=== PATIENT | male | born 1995 | race Caucasian/White ===

== ENCOUNTER 2017-02-17 19:36 | Emergency (ER) | payer MEDICAID ==
[~2017-02-17] VITALS: Ht 165.1 cm; Wt 57.0 kg
[2017-02-17 19:48] VITALS: Ht 165.1 cm; Wt 57.0 kg
[2017-02-17] MEDS ORDERED: IBUP-1542 PO (20:05)
[2017-02-17] MEDS ORDERED: AMO500 PO (20:05)
--- NOTE | 2017-02-17 20:12 | ERD ---
ER Documentation Chief Complaint Date/Time DATE: 02/17/17 TIME: 20:[address] for 3 weeks with "Bumps" in throat HPI 21-year-old male presents to emergency department for complaints of sore throat for 3 weeks, burning pain 8/10 scale, is worse upon swallowing, noted some bumps in the third, and is on and off swelling of the tonsils per patient. Patient did not take any medications of symptoms. Patient has been having on and off fever. Patient is any other symptoms. Patient denies any stridor. ROS All systems reviewed and are negative except as per history of present illness. Medications Home Meds Active Scripts Ibuprofen* (Motrin*) 600 Mg Tab, 600 MG PO Q6H Y for PAIN AND OR ELEVATED TEMP, #30 TAB Prov:LEIGH ANN KAY BRIDAL CONSULTANT 02/17/17 Amoxicillin* (Amoxicillin*) 500 Mg Cap, 500 MG PO TID for 10 Days, CAP Prov:LEIGH ANN KAY BRIDAL CONSULTANT 02/17/17 Allergies Allergies: Coded Allergies: No Known Allergy (Unverified , 02/17/17) PMhx/Soc Medical and Surgical Hx: pt denies Medical Hx, pt denies Surgical Hx FmHx Family History: No coronary disease, No diabetes, No other Physical Exam Vitals Vital Signs Date Time Temp Pulse Resp B/P Pulse Ox O2 Delivery O2 Flow Rate FiO2 02/17/17 19:48 98.2 78 18 133/83 99 Physical Exam GENERAL: The patient is well developed and appropriate for usual state of health, in no apparent distress. HEENT: Atraumatic. Ears: Normal tympanic membrane, no erythema or bulging. No ear canal swelling. No ear discharge. Nose: normal nasal turbinates, no erythema or swelling. Normal nasal discharge. Throat: oropharynx erythema with tonsillar swelling and tonsillar exudates noted. No tonsillar swelling or tonsillar exudates. No lymphadenopathy. CHEST: Clear to auscultation bilaterally. There are no rales, wheezes or rhonchi. HEART: Regular rate and rhythm. No murmurs, clicks, rubs or gallops. No S3 or S4. ABDOMEN: Soft, nontender and nondistended. Good bowel sounds. No rebound or guarding. No gross peritonitis. No gross organomegaly or masses. No Whaley sign or McBurney point tenderness. BACK: No midline or flank tenderness. EXTREMITIES: Equal pulses bilaterally. There is no peripheral clubbing, cyanosis or edema. No focal swelling or erythema. Full range of motion. Grossly neurovascularly intact. NEURO: Alert and oriented. Cranial nerves 2-12 intact. Motor strength in all 4 extremities with 5/5 strength. Sensation grossly intact. Normal speech and gait. SKIN: There is no apparent rash or petechia. The skin is warm and dry. HEMATOLOGIC AND LYMPHATIC: There is no evidence of excessive bruising or lymphedema. No gross cervical, axillary, or inguinal lymphadenopathy. Procedures/MDM Medical decision making: Patient symptoms is likely consistent with acute bacterial pharyngitis, most likely strep throat. Low suspicion for peritonsillar abscess, mononucleosis, no symptoms of epiglottitis, laryngitis. No oral airway obstruction noted. No symptoms of sepsis at this time. Patient appears well and is hemodynamically stable. Patient was given for amoxicillin, ibuprofen, is advised to follow-up with primary care doctor in 2-3 days for reevaluation of symptoms. Patient is advised to do salt water gargles. Patient is advised to return to emergency department for worsening symptoms. Disposition: Home. Stable. Departure Diagnosis: Primary Impression: Acute bacterial pharyngitis Condition: Stable Patient Instructions: Pharyngitis, Strep (Presumed) LEIGH ANN KAY NP Feb 17, 2017 20:12
== END 2017-02-17 20:05 | disposition home or self-care (01) ==
LOC: E/R 19:36
DX: J02.8 Acute pharyngitis due to other specified organisms (principal); B96.89 Other specified bacterial agents as the cause of diseases classified elsewhere
CPT/HCPCS: 99283

== ENCOUNTER 2017-02-24 17:03 | Emergency (ER) | payer MEDICAID ==
[~2017-02-24] VITALS: Ht 167.6 cm; Wt 56.0 kg
[~2017-02-24 17:03] MED LIST: AMO500 PO; IBUP-1542 PO
[2017-02-24 17:14] VITALS: Ht 167.6 cm; Wt 56.0 kg
[2017-02-24] MEDS ORDERED: ACET500C5 PO (17:29)
[2017-02-24] MEDS ORDERED: BENZ100C70 PO (17:29)
--- NOTE | 2017-02-24 17:35 | ERD ---
ER Documentation Chief Complaint Date/Time DATE: 02/24/17 TIME: 17:32 Chief Complaint WAKING UP WITH FEVER IN AM X4 DAYS, [place] HPI Patient is a 21-year-old male who presents to the ED with fever, sore throat, cough and body aches on and off 1 week. Patient states that he was seen here 6 days ago was given amoxicillin ibuprofen which she has been taking as prescribed. He states that he feels better with the medication however he states that he still has a cough. States that he did not check his temperature but felt hot this morning. Denies seizures or rashes. Denies headache or dizziness. Denies syncopal episodes. Denies abdominal pain, nausea, vomiting or diarrhea. Denies chest pain or shortness of breath. Denies difficulty breathing. Denies leg pain or leg swelling. Denies recent travel or recent surgeries. States that he does use marijuana however he has not used in the last month. ROS All systems reviewed and are negative except as per history of present illness. Medications Home Meds Active Scripts Acetaminophen* (Tylophen*) 500 Mg Capsule, 1 CAP PO Q6H Y for PAIN AND OR ELEVATED TEMP, #20 CAP Prov:ALISHA GARCÍA PA-C 02/24/17 Benzonatate* (Tessalon Perle*) 100 Mg Capsule, 100 MG PO Q8H Y for COUGH for 14 Days, CAP Prov:ALISHA GARCÍA PA-C 02/24/17 Ibuprofen* (Motrin*) 600 Mg Tab, 600 MG PO Q6H Y for PAIN AND OR ELEVATED TEMP, #30 TAB Prov:LEIGH ANN KAY NP 02/17/17 Amoxicillin* (Amoxicillin*) 500 Mg Cap, 500 MG PO TID for 10 Days, CAP Prov:LEIGH ANN KAY NP 02/17/17 Allergies Allergies: Coded Allergies: No Known Allergy (Unverified , 02/17/17) PMhx/Soc History of Surgery: No Anesthesia Reaction: No Hx Neurological Disorder: No Hx Respiratory Disorders: No Hx Cardiac Disorders: No Hx Psychiatric Problems: No Hx Miscellaneous Medical Probl: No Hx Alcohol Use: No Hx Substance Use: Yes (Marijuana use) Hx Tobacco Use: No Physical Exam Vitals Vital Signs Date Time Temp Pulse Resp B/P Pulse Ox O2 Delivery O2 Flow Rate FiO2 02/24/17 17:14 99.2 101 16 121/69 100 Physical Exam GENERAL: Well-developed, well-nourished male. Appears in no acute distress. HEAD: Normocephalic, atraumatic. EYES: Pupils are equally reactive bilaterally. EOMs grossly intact. No conjunctival erythema. ENT: Moist mucous membranes. No uvula deviation. No kissing tonsils. No exudates. Bilateral TMs clear with no erythema. No mastoid tenderness. No tenderness to the pinna or tragus NECK: Supple. No lymphadenopathy or thyromegaly. No meningismus. negative kernig. negative brudinski. LUNG: Clear to auscultation bilaterally. No rhonchi, wheezing, rales or coarse breath sounds. HEART: Regular rate and rhythm. No murmurs, rubs or gallops. ABDOMEN: No scars, ecchymosis or rashes noted. Soft, nontender, and nondistended. Positive bowel sounds in all four quadrants. No rebound tenderness , no guarding. (-) McBurneys point tenderness. No CVA tenderness. BACK: No midline tenderness. Extremities: Equal pulses bilaterally. No peripheral clubbing, cyanosis or edema. No unilateral leg swelling. Negative Homans sign. No palpable cord. NEUROLOGIC: Alert and oriented. Moving all four extremities. 5/5 strength in all extremities. Normal speech. Steady gait. Cranial nerves II through XII intact. SKIN: Normal color. Warm and dry. No rashes or lesions. Capillary refill < 2 seconds Procedures/MDM ER COURSE: I kept the patient and/or family informed of laboratory and diagnostic imaging results throughout the emergency room course. MEDICAL DECISION MAKING: This is a 21-year-old male who presents with fever and cough 1 week. Vital signs were reviewed. Patient is afebrile. Patient is not hypoxic. Patient is nontoxic or ill-appearing. Patient likely has URI of viral etiology. Advised patient to continue taking the amoxicillin as prescribed as patient stated that he did not take it for 1 day yesterday. I also advised patient that he needs to follow-up with her primary care and establish care for a physical. Patient examination today in the ED was unremarkable. I have low suspicion for cardiac emergency. Low suspicion for ACS, PE, AAA, dissection, DVT. I have low suspicion for PE. Low suspicion for pneumonia, PE, pneumothorax, ACS, epiglottitis, obstruction, TB, pertussis, meningitis, sepsis. Low suspicion for peritonsillar abscess, strep pharyngitis, mononucleosis, dental abscess./Do not think an x-ray was this at this time as patient is afebrile and his lung examination within normal limits. DISCHARGE: At this time, patient is stable for discharge and outpatient management with no new complaints during the ER course. Patient was sent home with Tylenol, Tessalprabhakar Perles and a list of primary care providers to follow-up with. Patient will be discharged home with instructions to recheck for new or worsening symptoms such as fever, nausea, weakness, LOC and to follow up with primary care in the next 1-2 days. Patient was advised to return to the ER for any new or worsening symptoms. Plan was discussed and patient and/or family understands and agrees. Home instructions were given. Departure Diagnosis: Primary Impression: URI, acute Condition: Stable Patient Instructions: Uri, Viral, No Abx (Adult) [facility]errals[facility] Usted se rojas hecho un examen mdico de control que le indica que no est en fausto condicin que requiera tratamiento urgente en el Departamento de Emergencia. Un estudio ms profundo y el tratamiento de greco condicin pueden esperar sin ningn riesgo hasta que usted sea atendida/o en el consultorio de greco mdico o fausto cl maura. Es responsabilidad suya arreglar fausto chely para el seguimiento del pricila. MANEJO DE CONDICIONES NO URGENTES EN EL FUTURO 1) Si usted tiene un mdico de atencin primaria: Usted debera llamar a greco mdico de atencin primaria antes de venir al departamento de emergencia. Despus de las horas de consultorio, greco doctor o greco asociado/a est disponible por telfono. El mdico o enfermero de claudia en el servicio telefnico puede asesorarle por manoj medio para atender el problema, o pricila contrario se puede programar fausto chely. 2) Si usted no tiene un mdico de atencin primaria: Llame al mdico o clnica de referencia que aparece abajo cristofer las horas de consultorio para hacer fausto chely para que le vean. CLINICAS: [facility] [phone] [facility] [phone] [facility] [phone] [place] [phone] [place] [id number] [phone] [facility] [phone] [address] Additional Instructions: Call your primary care doctor TOMORROW for an appointment during the next 1-2 days.See the doctor sooner or return here if your condition worsens before your appointment time. ALISHA GARCÍA PA-C Feb 24, 2017 17:35
== END 2017-02-24 17:35 | disposition home or self-care (01) ==
LOC: E/R 17:03
DX: J06.9 Acute upper respiratory infection, unspecified (principal)
CPT/HCPCS: 99283